=== PATIENT | female | born 2000 ===

== ENCOUNTER 2021-02-09 01:42 | Inpatient (IN) | payer MEDICAID, OTHER ==
[2021-02-11 16:51] VITALS: BP 127/72
== END 2021-02-11 16:40 | disposition home or self-care (01) | DRG 807 ==
LOC: EDSTATUS 02:14 → TRG 02:19 → APU 02:28 → LD 10:04 → OBSVTOIN 19:00 → TRG 19:40 → OB 21:51
PROC: 10E0XZZ Delivery of Products of Conception, External Approach (ICD-10-PCS; principal; 2021-02-09)
PROC: 3E0R3BZ Introduction of Anesthetic Agent into Spinal Canal, Percutaneous Approach (ICD-10-PCS; 2021-02-09)
PROC: 00HU33Z Insertion of Infusion Device into Spinal Canal, Percutaneous Approach (ICD-10-PCS; 2021-02-09)
DX: O99.62 Diseases of the digestive system complicating childbirth (principal); Z37.0 Single live birth; K21.9 Gastro-esophageal reflux disease without esophagitis; O60.14X0 Preterm labor third trimester with preterm delivery third trimester, not applicable or unspecified; O77.0 Labor and delivery complicated by meconium in amniotic fluid; Z3A.35 35 weeks gestation of pregnancy; Z20.822 Contact with and (suspected) exposure to COVID-19
CPT/HCPCS: 36415; 59025; 76805; 76816; 81001; 84703; 85014; 85018; 85027; 86592; 86706; 86762; 86803; 86850; 86900; 86901; 87806; 88307; G0378; A6250; J0290; J0595; J2405; J2590; J7120; U0003